=== PATIENT | male | born 1945 | race Caucasian/White ===

== ENCOUNTER 2016-09-16 18:30 | Emergency (ER) | payer MEDICARE, OTHER ==
[~2016-09-16 18:30] MED LIST: ACYCLOVIR400 MG PO; ALDACTONE100 MG; ALDACTONE25 M1 PO; ALDACTONE50 M1 PO; ALDACTONE50 MG PO; ANTIBIOTIC; ASPIRIN81 MG PO; BACTRIM; CALCIUM CARBONATE; CALCIUM MAGNES1 EAC2 PO; CALCIUM500 M1 PO; CLINDAMYCIN HC300 MG PO; COMPAZINE PO; COMPAZINE10 MG PO; CORGARD40 MG PO; CPAP; DULCOLAX10 MG RC; DULCOLAX10 MG/SUPP PR; ENULOSE PO; ENULOSE10 G/15 ML PO; FUROSEMIDE20 MG PO; FUROSEMIDE80 M1 PO; GLUCAGEN1 MG/1 ML IM; GLUCOPHAGE500 MG PO; INSULIN; KRISTALOSE20 G/PKT PO; LACTULOSE ENEMA PR; LACTULOSE PO; LACTULOSE10 G/15 ML PO; LACTULOSE10 GM/155 PO; LANTUS SOLOSTAR3 ML SQ; LANTUS100 U/ML SC; LASIX40 M1 PO; LASIX40 MG PO; LASIX80 M1 PO; LASIX80 MG PO; LEVAQUIN500 MG PO; LEVEMIR FL100 UNIT/2 SC; LEVEMIR100 U/ML SQ; LIDODERM700 MG TOP; MAGNESIUM OXID400 M1 PO; NEOMYCIN SULFA500 M1 PO; NEOMYCIN SULFA500 MG PO; NEURONTIN100 MG PO; NEXIUM40 MG PO; NORCO 5-325 TA1 EACH PO; NORCO 7.5/325 T1 TAB PO; NOVOLOG FL100 UNIT/2 SC; NUVIGIL50 MG PO; OMEPRAZOLE40 MG PO; OXYGEN; PERCOCET 5-3251 EACH PO; PRILOSEC40 M1 PO; PRILOSEC40 MG; PROGRAF0.5 M1 PO; PROPRANOLOL HCL10 MG PO; QUININE; SIMVASTATIN20 MG PO; SPIRONOLACTONE100 MG PO; TRAMADOL; TRAMADOL HCL50 M2 PO; TRAMADOL HCL50 MG PO; TYLENOL325 M1 PO; TYLENOL325 M2 PO; ULTRAM50 MG PO; VITAMIN D PO; VITAMIN D1000 UNI1 PO; VITAMIN D350000 UNI1 PO; VITAMIN D350000 UNIT PO; VITAMIN D400 UNIT; VITAMIN D50000 UNI1 PO; XIFAXAN550 MG PO; ZINC CHELATED50 M1 PO; ZINC SULFATE220 MG PO; ZINC50 M PO; ZOFRAN4 M1 PO; ZOFRAN4 M2 PO; [UNRECOGNIZED DRUG - OTHER]; [UNRECOGNIZED DRUG - OTHER] IV
[2016-09-16] MEDS ORDERED: COREG6.25 M1 PO (19:02)
[2016-09-16] MEDS ORDERED: COZAAR50 M1 PO (19:02)
[2016-09-16] MEDS ORDERED: OMEPRAZOLE20 M3 PO (19:02)
[2016-09-16] MEDS ORDERED: GLUMETZA1000 MG PO (19:03)
[2016-09-16] MEDS ORDERED: COUMADIN2.5 M1 PO (19:03)
[2016-09-16] MEDS ORDERED: COUMADIN5 M2 PO (19:04)
[2016-09-16 19:41] LABS: BASO % 0.1 % (0-2); EOS % 2.2 % (0-7); EOSINOPHIL ABSOLUTE COUNT 0.2 tho/cmm (0.0-0.7); HCT-HEMATOCRIT 44.5 % (36.0-53.5); HGB-HEMOGLOBIN 14.3 gm/dl (13.5-17.0); IMMATURE GRANULOCYTES ABSOLUTE 0.03 tho/cmm (0-0.03); IMMATURE GRANULOCYTES PERCENT 0.4 % (0-0.3); INR 3.9 INR (0.9-1.1); LYMPH ABSOLUTE COUNT 3.3 tho/cmm (0.8-4.5); MCH (MEAN CORPUSCULAR HGB) 29.1 pg (28.0-32.0); MCHC MEAN CORPUSCULAR HGB CONC 32.1 % (32.0-36.0); MCV (MEAN CELL VOLUME) 90.4 fl (82.0-96.0); MEAN PLATELET VOLUME 10.8 cmc (9.4-12.4); MONO % 5.4 % (0-12); MONOCYTE ABSOLUTE COUNT 0.4 tho/cmm (0.0-1.2); NEUTROPHIL ABSOLUTE COUNT 3.3 tho/cmm (1.6-8.0); NEUTROPHIL-AUTOMATED 3.3 tho/cmm (1.6-8.0); NEUTROPHILS % 45.9 % (40-80); PLATELET COUNT 87 tho/cmm (150-450); PROTHROMBIN TIME 47.5 SECONDS (9.0-13.6); RED BLOOD COUNT 4.92 mil/cmm (4.40-5.70); RED CELL DISTRIBUTION WIDTH 15.5 % (12.4-16.4); WHITE BLOOD COUNT 7.2 tho/cmm (4.0-10.0)
[2016-09-16 19:52] LABS: ALB/GLOB RATIO 0.6 (0.8-2.0); ALBUMIN 3.2 g/dl (3.5-5.0); ALKALINE PHOSPHATASE 185 U/L (33-138); ALT/SGPT 31 U/L (12-78); ANION GAP 11 mmol/L (0-20); AST/SGOT 19 U/L (10-40); BILIRUBIN,TOTAL 0.3 mg/dl (0.0-1.5); BLOOD UREA NITROGEN 23 mg/dl (6-24); CALCIUM 8.1 mg/dl (8.5-10.5); CARBON DIOXIDE-VENOUS 26 mmol/L (22-32); CHLORIDE 107 mmol/l (96-110); CREATININE 1.33 mg/dl (0.60-1.30); GLUCOSE 206 mg/dL (70-110); POTASSIUM 5.2 mmol/L (3.7-5.1); SODIUM 139 mmol/L (135-145); eGFR VALUE FOR BLACK 61 mL/Min
[2016-09-16] MEDS ORDERED: LASIX20 M1 PO (20:43)
[2017-02-01] MEDS ORDERED: NOVOLOG FL100 UNIT/2 SC (14:06)
[2017-02-04] MEDS ORDERED: CEFDINIR300 M1 PO (13:41)
[2017-02-04] MEDS ORDERED: ZITHROMAX250 M1 PO (13:42)
[2017-02-04] MEDS ORDERED: PREDNISONE10 M1 PO ×2 (13:52→13:53)
== END 2016-09-16 23:00 ==
LOC: EDMED 18:30
PROVIDERS: Emergency Medicine
DX: S30.1XXA Contusion of abdominal wall, initial encounter (principal); N17.9 Acute kidney failure, unspecified; D69.6 Thrombocytopenia, unspecified; I48.91 Unspecified atrial fibrillation; J44.9 Chronic obstructive pulmonary disease, unspecified; Z79.01 Long term (current) use of anticoagulants; Z90.89 Acquired absence of other organs; Z79.899 Other long term (current) drug therapy; X58.XXXA Exposure to other specified factors, initial encounter
CPT/HCPCS: J7030; Q9967

== ENCOUNTER 2016-09-18 19:52 | Emergency (ER) | payer MEDICARE, OTHER ==
[~2016-09-18 19:52] MED LIST changes: +COREG6.25 M1 PO; +COUMADIN2.5 M1 PO; +COUMADIN5 M2 PO; +COZAAR50 M1 PO; +GLUMETZA1000 MG PO; +LASIX20 M1 PO; +OMEPRAZOLE20 M3 PO
[2016-09-18 21:05] LABS: BASO % 0.3 % (0-2); EOS % 2.7 % (0-7); EOSINOPHIL ABSOLUTE COUNT 0.2 tho/cmm (0.0-0.7); HCT-HEMATOCRIT 43.1 % (36.0-53.5); HGB-HEMOGLOBIN 13.9 gm/dl (13.5-17.0); IMMATURE GRANULOCYTES ABSOLUTE 0.03 tho/cmm (0-0.03); IMMATURE GRANULOCYTES PERCENT 0.4 % (0-0.3); LYMPH % 40.9 % (20-45); LYMPH ABSOLUTE COUNT 3.2 tho/cmm (0.8-4.5); MCH (MEAN CORPUSCULAR HGB) 29.1 pg (28.0-32.0); MCHC MEAN CORPUSCULAR HGB CONC 32.3 % (32.0-36.0); MCV (MEAN CELL VOLUME) 90.2 fl (82.0-96.0); MEAN PLATELET VOLUME 10.9 cmc (9.4-12.4); MONO % 6.5 % (0-12); MONOCYTE ABSOLUTE COUNT 0.5 tho/cmm (0.0-1.2); NEUTROPHIL ABSOLUTE COUNT 3.8 tho/cmm (1.6-8.0); NEUTROPHIL-AUTOMATED 3.8 tho/cmm (1.6-8.0); NEUTROPHILS % 49.2 % (40-80); PLATELET COUNT 92 tho/cmm (150-450); RED BLOOD COUNT 4.78 mil/cmm (4.40-5.70); RED CELL DISTRIBUTION WIDTH 15.4 % (12.4-16.4); WHITE BLOOD COUNT 7.7 tho/cmm (4.0-10.0)
[2016-09-18 21:13] LABS: PARTIAL THROMBOPLASTIN TIME 43 SECONDS (22-36)
[2016-09-18 21:22] LABS: ALB/GLOB RATIO 0.6 (0.8-2.0); ALBUMIN 3.1 g/dl (3.5-5.0); ALKALINE PHOSPHATASE 163 U/L (33-138); ALT/SGPT 28 U/L (12-78); ANION GAP 11 mmol/L (0-20); AST/SGOT 19 U/L (10-40); BILIRUBIN,TOTAL 0.3 mg/dl (0.0-1.5); BLOOD UREA NITROGEN 21 mg/dl (6-24); CALCIUM 8.1 mg/dl (8.5-10.5); CARBON DIOXIDE-VENOUS 27 mmol/L (22-32); CHLORIDE 106 mmol/l (96-110); CREATININE 1.15 mg/dl (0.60-1.30); GLUCOSE 152 mg/dL (70-110); POTASSIUM 4.8 mmol/L (3.7-5.1); SODIUM 139 mmol/L (135-145); eGFR VALUE FOR BLACK 73 mL/Min
[2016-09-18 21:30] LABS: INR 1.8 INR (0.9-1.1); PROTHROMBIN TIME 20.7 SECONDS (9.0-13.6)
[2016-09-18 22:23] LABS: ANTI THROMBIN III 93 % (80-120); D-DIMER 584 ng/mlFEU (<500); FIBRINOGEN 467 mg/dl (200-400)
[2017-02-01] MEDS ORDERED: NOVOLOG FL100 UNIT/2 SC (14:06)
[2017-02-04] MEDS ORDERED: CEFDINIR300 M1 PO (13:41)
[2017-02-04] MEDS ORDERED: ZITHROMAX250 M1 PO (13:42)
[2017-02-04] MEDS ORDERED: PREDNISONE10 M1 PO ×2 (13:52→13:53)
== END 2016-09-18 23:10 ==
LOC: EDMED 19:52
PROVIDERS: Emergency Medicine
DX: S30.1XXA Contusion of abdominal wall, initial encounter (principal); M19.90 Unspecified osteoarthritis, unspecified site; X58.XXXA Exposure to other specified factors, initial encounter